=== PATIENT | female | born 1985 | race Caucasian/White ===

== ENCOUNTER 2016-08-28 20:19 | Emergency (ER) | payer MEDICAID ==
[~2016-08-28] VITALS: Ht 165.1 cm; Wt 60.5 kg
[~2016-08-28 20:19] MED LIST: BENZ100 PO; DELS30LI5 PO; LEVO.05 PO
[2016-08-28 20:47] VITALS: BP 115/77; PULSE 74; RESP 18; TEMP 97.7; O2SAT 100
--- NOTE | 2016-08-28 21:32 | PD ---
HPI . c/o panic attack yesterday now with rib pain Chief Complaint: Musculoskeletal Complaint Time Seen by Provider: 21:32 Travel History International Travel<30 days: No Contact w/Intl Traveler<30days: No Traveled to known affect area: No History of Present Illness HPI 31-year-old female with history of panic disorder that has been in remission for the past 3 years reports having panic attack yesterday. Patient says that out of nowhere and contacts suddenly onset. She reports that ever since then she's had this rib pain/tightness sensation in her chest. The pain is present in her rib cage and hurts with palpation. She is here because she just wants to be checked out. She denies a shortness of breath, chest pain, nausea, vomiting or diaphoresis. She is extremely worried that her panic attacks are coming back and wants to know why. She is accompanied by her father. PFSH Past Medical History Diminished Hearing: No Immunizations Current: Yes Thyroid Disease: Yes ?: Not LMP: 08-29-16 Past Surgical History Section: Yes Other Surgery: Yes (MYOMECTOMY) Social History Alcohol Use: No Tobacco Use: No Substance Use: No Allergies-Medications (Allergen,Severity, Reaction): Coded Allergies: No Known Allergies (Verified , 08/28/16) Reported Meds & Prescriptions Reported Meds & Active Scripts Active Tessalon Perles (Benzonatate) 100 Mg Cap 100 Mg PO Q8HR PRN 5 Days Reported Delsym (Dextromethorphan Polistirex) 30 Mg/5 Ml Liq 30 Mg PO ONCE Synthroid (Levothyroxine Sodium) 50 Mcg Tab 50 Mcg PO DAILY Review of Systems General / Constitutional: No: Fever Eyes: No: Visual changes HENT: No: Headaches Cardiovascular: No: Chest Pain or Discomfort Respiratory: No: Shortness of Breath Gastrointestinal: No: Abdominal Pain Genitourinary: No: Dysuria Musculoskeletal: Positive: Pain (rib pain) Skin: No Rash Neurologic: No: Weakness Psychiatric: No: Depression Endocrine: No: Polydipsia Hematologic/Lymphatic: No: Easy Bruising Physical Exam Narrative GENERAL: AAO x 3, no acute distress, Well-nourished, well-developed patient. SKIN: Warm and dry. No visible rashes or bruising. HEAD: Normocephalic and atraumatic. EYES: No scleral icterus. No injection or drainage. ENT: No nasal drainage noted. Mucous membranes pink. Airway patent. NECK: Supple, trachea midline. No JVD. CARDIOVASCULAR: Regular rate and rhythm without murmurs, gallops, or rubs. RESPIRATORY: Breath sounds equal bilaterally. No accessory muscle use. No rhonchi or rales. tenderness to rib cage and sternum GASTROINTESTINAL:visual inspection normal EXTREMITIES: No cyanosis or edema. BACK: No obvious deformity. No CVA tenderness. NEURO: CN II-12 intact, PSYCH: AAO x 3, normal affect. Data Data Last Documented VS Vital Signs Date Time Temp Pulse Resp B/P Pulse Ox O2 Delivery O2 Flow Rate FiO2 08/28/16 21:56 74 18 08/28/16 20:47 97.7 115/77 100 Orders Chest, Single Ap (08/28/16 ) [facility] Medical Decision Making Medical Screen Exam Complete: Yes Emergency Medical Condition: Yes Medical Record Reviewed: Yes Differential Diagnosis Anxiety, generalized anxiety disorder, less likely pneumonia, less likely costochondritis Narrative Course 31-year-old female here with rib pain/chest tightness after a panic attack yesterday. She has pain with palpation to rib cage and sternum. Exam done and no significant findings. I recommend a cxr to give her some peace of mind that there are no fractures or acute cardiopulmonary process such as pneumonia or pneumothorax. Last Impressions Chest X-Ray 08/28/16 0000 Signed Impressions: Service Date/Time: Sunday, August 28, 2016 21:50 - CONCLUSION: No evidence of acute cardiopulmonary disease. Carlitos Lawrence MD I had a prolonged discussion regarding anxiety with this patient. I explained her chest x-ray. I advised her that I do not have any answer as to why her panic attacks returning. I do recommend she follow-up with her primary care provider in psychiatry. She may need a long acting medication such as Paxil. We discussed this at length. I advised her to return to the emergency department if her symptoms persist. Patient verbalized understanding of instructions, questions were answered, and thanked me for their care. I advised them if their condition worsens, please return to the nearest emergency room for further care. Diagnosis Primary Impression: Anxiety Patient Instructions: General Instructions Additional Instructions: Please return to emergency department if your symptoms return or worsen. Follow up with your primary care provider. Discussed medicine options with your primary care provider. Med/Other Pt SpecificInfo: No Change to Meds Disposition: 01 DISCHARGE HOME Condition: Stable Jeannette Rhodes Aug 28, 2016 21:32
--- NOTE | 2016-08-28 22:13 | RADRPT ---
EXAM DATE/TIME: 08/28/2016 21:50 [facility] COMPARISON: No previous studies available for comparison. INDICATIONS : Bilateral anterior rib pain. No known injury. MEDICAL HISTORY : Hyperthyroidism. SURGICAL HISTORY : section. ENCOUNTER: Initial ACUITY: 1 day PAIN SCORE: 5/10 LOCATION: Bilateral chest FINDINGS: A single view of the chest demonstrates the lungs to be symmetrically aerated without evidence of mas s, infiltrate or effusion. The cardiomediastinal contours are unremarkable. Osseous structures are intact. CONCLUSION: No evidence of acute cardiopulmonary disease. Carlitos Lawrence MD on August 28, 2016 at 22:11 Board Certified Radiologist. This report was verified electronically.
== END 2016-08-28 22:36 | disposition home or self-care (01) ==
LOC: PHEFT 20:19
DX: F41.9 Anxiety disorder, unspecified (principal)
CPT/HCPCS: 71010; 99283